=== PATIENT | male | born 1975 | race Caucasian/White ===

== ENCOUNTER → 2017-03-20 | Day surgery (SDC) | payer OTHER ==
[~2017-03-20] VITALS: Ht 172.7 cm; Wt 77.5 kg
[~2017-03-20] MED LIST: ATROPINE SULFATE 0.1 MG/ML 5ML SYR IV PRN; BUPIVACAINE/EPINEPHRINE 0.25% 1:200,000 30 ML VIAL ONE; CEFAZOLIN 2000MG IV PUSH 10 ML IV SCH; DEXAMETHASONE SOD INJ 4 MG/ML VIAL ONE; EpINEphrine INJ 1MG/ML AMP 1 MG/ML AMP ONE; FENTANYL CITRATE INJ 50 MCG/1 ML 2 ML VIAL IV PRN; FENTANYL CITRATE INJ 50 MCG/1 ML 2 ML VIAL ONE; GABA-113 PO; HYDR-3419 PO; KETOROLAC TROMETHAMINE 30 MG/ML VIAL IV. PRN; LABETALOL HCL IV 5 MG/ML 20ML IV PRN; LIDOCAINE HCL 2% 2 ML VIAL (20MG/ML) ONE; MELO7.5T5 PO; MIDAZOLAM HCL 1 MG/ML 2ML VIAL ONE; ONDANSETRON INJ 2 MG/ML 2 ML VIAL IV PRN; ONDANSETRON INJ 2 MG/ML 2 ML VIAL ONE; OXYCODONE/ACETAMINOPHEN 5-325 TAB PO PRN; PATIENT'S ALLERGY INFO NEEDS ENTERED SCH; PROPOFOL IV EMULSION 10 MG/ML 20 ML VIAL IV ONE; ROPIVACAINE 0.5% 5 MG/ML 30 ML VIAL ONE; SODIUM CHLORIDE 0.9% 1000ML 1,000 ML IV SCH
[2017-03-20 06:54] VITALS: Ht 172.7 cm; Wt 77.5 kg
[2017-03-20] MEDS: LACTATED RINGER'S 1000ML 1,000 ML IV SCH ×2 (06:55→09:47)
--- NOTE | 2017-03-20 06:58 | History & Physical Bridge - [place] ---
H&P Re-Evaluation Bridge Note: I have examined the patient, reviewed the History & Physical and in the interval since the performance of the History & Physical I have noted the following changes of clinical significance: No changes noted
--- NOTE | 2017-03-20 09:29 | Discharge Instructions-SurgCtr ---
Discharge Instructions Date of Service Mar 20, 2017. Visit Reason for Visit: Shoulder Pain Discharge Discharge Diagnosis / Problem: SAME ABOVE Discharge Goals Goal(s): Decrease discomfort, Improve function Medications Stopped Medications Name(s): meloxicam and gabapentin stopped last monday 03/12 Restart Stopped Medication(s): MAY RESTART GABAPENTIN 03/20/2017 IF YOU GET A PRESCRIPTION OF TORADOL TAKE TORADOL EVERY 8 HOURS WITH FOOD. DO NOT TAKE MELOXICAM WHILE TAKING TORADOL Activity Recommendations Activity Limitations: as noted below Lifting Limitations: gradually increase as tolerated Exercise/Sports Limitations: gradually increase as tolerated Anesthesia . Post Anesthesia Instructions: If you have had General Anesthesia or IV Sedation: * Do not drive today. * Resume driving when surgeon permits. * Do not make important decisions or sign legal documents today. * Call surgeon for: 1. Temperature elevations greater than 101 degrees F. 2. Uncontrollable pain. 3. Excessive bleeding. 4. Persistent nausea and vomiting. 5. Medication intolerance (nausea, vomiting or rash). * For nausea and vomiting use only clear liquids such as: tea, soda, bouillon until nausea subsides, then gradually increase diet as tolerated. * If you have any concerns or questions, call your surgeon's office. If physician is unavailable and it is an emergency, call 911 or go to the nearest emergency room. . Instructions / Follow-Up Instructions / Follow-Up MEDICATIONS: * Resume previous medications unless instructed otherwise by your surgeon. * Always take pain medication on a full stomach or with food to avoid upset stomach. * Do not drink alcohol or drive while taking narcotics. * Ibuprofen or Tylenol may be taken if narcotic not needed. SPECIAL CARE INSTRUCTIONS: __ None _X_ Keep extremity elevated and iced x 48 hours; apply ice 20-30 minutes 8-10 times/day. May remove at night. _X_ Sling (WEAR FOR COMFORT ONLY) __24 hrs/day __ Remove at night __ Shoulder Immobilizer __ 24 hrs/day __ Remove at night _X_ Dressing __ Maintain until seen in office, may shower with plastic over site _X_ Remove dressings in 24-48 hours and then may shower _X_ Cover incisions with band-aids after showering __ Do not remove steri-strips Call physician if chills or temperature rises above 102 degrees or pain unrelieved by prescribed pain medications at . . Diet Recommendations Home Diet: no limitations Fluid Restriction: None Procedures Procedures Performed: Left Shoulder Arthroscopy Subacromial Decompression, Possible Open Bicep Tenodesis Pending Studies Studies pending at discharge: no Work Instructions Return To Work: after follow-up Medical Emergencies . Who to Call and When: Medical Emergencies: If at any time you feel your situation is an emergency, please call 911 immediately. . Non-Emergent Contact Non-Emergency issues call your: Primary Care Provider Call Non-Emergent contact if: you have a fever, temperature is above 101.5 . . "Provider Documentation" section prepared by Boston Aragon. .
[2017-03-20 10:05] VITALS: TEMP 36.8
[2017-03-20 10:36] VITALS: BP 132/88; PULSE 70; O2SAT 97
--- NOTE | 2017-03-20 10:57 | Anesthesia Progress Nt - [facility] ---
Anesthesia Post Op Note Date & Time Mar 20, 2017 at 10:57 Vital Signs Pain Intensity: 0 Vital Signs Past 12 Hours Date Time Temp Pulse Resp B/P (MAP) Pulse Ox O2 Delivery O2 Flow Rate FiO2 03/20/17 10:36 70 18 132/88 (103) 97 Room Air 03/20/17 10:05 36.8 76 16 153/99 (117) 97 Room Air 03/20/17 10:01 131/99 03/20/17 09:58 69 16 97 03/20/17 09:58 69 16 03/20/17 09:57 57 15 97 03/20/17 09:57 62 15 03/20/17 09:56 135/102 03/20/17 09:53 153/111 03/20/17 09:52 56 17 96 03/20/17 09:52 37.7 77 20 135/102 97 Room Air 03/20/17 09:52 56 17 03/20/17 09:51 159/104 03/20/17 09:47 67 19 98 03/20/17 09:47 65 19 03/20/17 09:46 142/94 03/20/17 09:43 142/96 03/20/17 09:42 69 16 99 03/20/17 09:42 67 16 03/20/17 09:41 144/105 03/20/17 09:37 72 18 100 03/20/17 09:37 68 18 03/20/17 09:36 162/95 03/20/17 09:32 74 21 100 03/20/17 09:32 75 21 03/20/17 09:31 154/90 03/20/17 09:27 76 20 144/101 100 03/20/17 09:27 78 20 03/20/17 09:26 147/107 03/20/17 09:22 82 21 150/95 100 03/20/17 09:22 82 21 03/20/17 09:21 36.8 86 12 150/95 100 Mask 6 03/20/17 08:17 0 03/20/17 08:16 138/80 03/20/17 08:14 62 03/20/17 08:14 64 19 98 03/20/17 08:13 58 03/20/17 08:13 57 19 98 03/20/17 08:11 135/88 03/20/17 08:08 67 03/20/17 08:08 61 19 100 03/20/17 08:06 135/85 03/20/17 08:05 140/96 03/20/17 08:03 55 03/20/17 08:03 55 0 95 03/20/17 07:58 55 0 96 03/20/17 07:58 54 03/20/17 07:53 53 03/20/17 07:53 50 0 97 03/20/17 07:48 56 03/20/17 07:48 60 0 95 03/20/17 07:43 58 0 96 03/20/17 07:43 57 03/20/17 07:38 55 0 95 03/20/17 07:38 56 03/20/17 07:33 71 03/20/17 07:33 72 0 98 03/20/17 07:28 56 03/20/17 07:28 56 0 96 03/20/17 07:23 61 03/20/17 07:23 64 97 03/20/17 07:18 74 0 98 03/20/17 07:18 70 03/20/17 07:13 59 0 97 03/20/17 07:13 62 03/20/17 07:08 63 0 97 03/20/17 07:08 62 03/20/17 06:43 36.9 71 18 142/96 (111) 99 Room Air Notes Mental Status: alert / awake / arousable, participated in evaluation Pt Amnestic to Procedure: Yes Nausea / Vomiting: adequately controlled Pain: adequately controlled Airway Patency, RR, SpO2: stable & adequate BP & HR: stable & adequate Hydration State: stable & adequate Anesthetic Complications: no major complications apparent
--- NOTE | 2017-03-20 16:27 | OPERATIVE REPORT ---
DATE OF OPERATION: 03/20/2017 PREOPERATIVE DIAGNOSIS: Severe external impingement of the left shoulder. POSTOPERATIVE DIAGNOSIS: Same. PROCEDURE: Left shoulder diagnostic arthroscopy with limited debridement and acromioplasty. SURGEON: Dr. Kevin Gandhi. MACHINE BILLER: Shahbaz Aragon PA-C, whose assistance was necessary for positioning the arm and helping with instrumentation. ANESTHESIA: General with left interscalene nerve block. COMPLICATIONS: None. CONDITION: Stable to PACU. INDICATIONS: Huan is a pleasant 42-year-old male, who has been having a 9-year history of left shoulder pain. MRI and clinical examination were been diagnostic for severe external impingement of the left shoulder. After failing years of conservative treatment including multiple injections, he has elected to proceed with a left shoulder arthroscopy. DESCRIPTION OF PROCEDURE: On 03/20/2017, he arrived at [facility] for the above procedures. He was seen in the preoperative holding area and the operative extremity was identified and signed. He was given a preoperative antibiotic and a left interscalene nerve block. He was taken back to the operating room, laid on the table in supine position and put under general anesthesia. He was put into the beachchair position. The left shoulder was prepped and draped in sterile fashion. Time-out was done and the patient and operative extremity was properly identified. A scope was introduced into the posterior portal. Diagnostic arthroscopy showed no cartilage damage to the humeral head or the glenoid. The supraspinatus, infraspinatus, teres minor and subscapularis were all checked and intact. The biceps tendon was intact and went through a normal size biceps nelson mechanism. There were no SLAP tears. There was some fraying of the anterior labrum. The inferior and posterior labrum were intact. An anterior portal was made. A shaver was used to do a limited debridement of the anterior labrum. The biceps tendon was pulled into the joint and there was no evidence of pathology. The scope was then put into the subacromial space. A lateral portal was made. A shaver was used to do a complete subacromial and subdeltoid bursectomy. An ablator was used to tease the coracoacromial ligament off the undersurface of the acromion and a 5-0 geovany was used to complete an acromioplasty of a very large Bigliani type 3 acromion. A shaver was used to remove any excess debris and the bursal side of the rotator cuff was examined extensively without evidence of tear. Final diagnostic arthroscopy showed no additional pathology. There was no pathology at the AC joint. Arthroscopic instruments were removed from the shoulder. Portal sites were closed with 3-0 nylon. He was placed in a soft dressing and regular arm sling. He was then extubated, transferred to a litter and taken to the postanesthesia care unit in stable condition. He tolerated the procedure well. I attest to the content of the Intraoperative Record and any orders documented therein. Any exception s are noted below.
--- NOTE | 2017-03-20 18:39 | [facility] Post Operative Brief Note ---
Immediate Operative Summary Operative Date Mar 20, 2017. Pre-Operative Diagnosis External Impingement Left Shoulder Post-Operative Diagnosis Same Procedure(s) Performed Left Shoulder Arthroscopy Subacromial Decompression, Possible Open Bicep Tenodesis Surgeon Dr. Gandhi Division Superintendent Surgeon(s) Lilly Aragon PA-C Estimated Blood Loss 5 mL Findings as above Specimens None Complication(s) None Disposition Recovery Room / PACU
== END | disposition home or self-care (01) ==
LOC: X.SURG 06:31
PROVIDERS: ATTEND Orthopaedic Surgery
DX: M75.42 Impingement syndrome of left shoulder (principal)